=== PATIENT | male | born 1960 | race Caucasian/White ===

== ENCOUNTER 2021-11-20 00:38 | Emergency (ER) | payer OTHER ==
[2021-11-20 00:53] VITALS: BMI 34.9
[2021-11-20] MEDS ORDERED: LACTATED RINGERS SOLUTION 1000 ML INFUS.BAG IV ONE (01:05)
[2021-11-20] MEDS ORDERED: ONDANSETRON 4 MG/2 ML VIAL IVPUSH ONE (01:05)
[2021-11-20] MEDS ORDERED: morphine SULFATE 4 MG/ML VIAL IVPUSH ONE (01:19)
[2021-11-20] MEDS ORDERED: morphine SULFATE 4 MG/ML VIAL ONE (01:20)
[2021-11-20] MEDS ORDERED: ONDANSETRON 4 MG/2 ML VIAL ONE (01:21)
[2021-11-20 01:41] LABS: HEMATOCRIT 42.9 % (35.4-49); HEMOGLOBIN 14.3 GM/dL (11.7-16.9); RBC 4.69 M/mm3 (4.00-5.60); WHITE BLOOD COUNT 11.2 K/mm3 (4.0-10.0)
[2021-11-20 01:42] LABS: BASO % 0.9 % (0-2.0); LYMPH % 8.5 % (8-40); MCH 30.6 pg (25.7-33.7); MCHC 33.4 g/dl (32.0-35.9); MEAN CELL VOLUME 91.5 fl (80-96); MEAN PLT VOLUME 10.9 fl (7.5-11.1); MONO % 8.4 % (3.8-10.2); NEUT % 82.2 % (42.8-82.8); PLATELET COUNT 435 10^3/uL (134-434); RDW 14.3 % (11.9-15.9)
[2021-11-20 01:43] LABS: VENOUS BASE EXCESS -5.4 mmol/L (-2-2); VENOUS O2 SATURATION 68.4 % (70-80); VENOUS PCO2 34.9 mmHg (38-52); VENOUS PH 7.357 (7.310-7.410)
[2021-11-20 01:55] LABS: INR 1.99 (0.83-1.09); PROTHROMBIN TIME (PATIENT) 23.1 SEC (9.7-13.0)
[2021-11-20 01:58] LABS: ACTIVATED PTT 39.2 SECONDS (25.2-36.5)
[2021-11-20 02:00] LABS: CHLORIDE 95 mmol/L (98-107); SODIUM 133 mmol/L (136-145)
[2021-11-20 02:02] LABS: ANION GAP 18 MMOL/L (8-16); BLOOD UREA NITROGEN 12.2 mg/dL (7-18); CALCIUM 9.5 mg/dL (8.5-10.1); CO2 21 mmol/L (21-32); GLUCOSE,RANDOM 356 mg/dL (74-106)
[2021-11-20 02:03] LABS: ALBUMIN 2.6 g/dl (3.4-5.0)
[2021-11-20 02:05] LABS: BILIRUBIN,DIRECT 15.5 mg/dL (0.0-0.2); SGPT/ALT 239 U/L (13-61)
[2021-11-20 02:06] LABS: SGOT/AST 225 U/L (15-37)
[2021-11-20 02:07] LABS: TOT PROT 6.2 g/dl (6.4-8.2)
[2021-11-20 02:23] LABS: LIPASE 130 U/L (73-393)
[2021-11-20 02:30] LABS: ALK PHOS 1675 U/L (45-117); BILIRUBIN,TOTAL 18.8 mg/dL (0.2-1)
[2021-11-20 03:04] LABS: CALCIUM 9.4 mg/dL (8.5-10.1)
[2021-11-20 03:05] LABS: BLOOD UREA NITROGEN 12.6 mg/dL (7-18)
[2021-11-20 03:09] LABS: CREATININE 1.1 mg/dL (0.55-1.3)
[2021-11-20] MEDS ORDERED: METOCLOPRAMIDE HCL INJECTION 10 MG/2 ML VIAL ONE (04:38)
[2021-11-20] MEDS ORDERED: METOCLOPRAMIDE HCL INJECTION 10 MG/2 ML VIAL IVPUSH ONE (04:38)
[2021-11-20 06:03] VITALS: BP 150/69; PULSE 111; TEMP 99.6
== END 2021-11-20 06:39 | disposition short-term general hospital (02) ==
LOC: JER 00:38
PROC: 3E033GC Introduction of Other Therapeutic Substance into Peripheral Vein, Percutaneous Approach (ICD-10-PCS; principal; 2021-11-20)
PROC: 3E033NZ Introduction of Analgesics, Hypnotics, Sedatives into Peripheral Vein, Percutaneous Approach (ICD-10-PCS; 2021-11-20)
PROC: 3E033GC Introduction of Other Therapeutic Substance into Peripheral Vein, Percutaneous Approach (ICD-10-PCS; 2021-11-20)
DX: E80.6 Other disorders of bilirubin metabolism (principal); K80.63 Calculus of gallbladder and bile duct with acute cholecystitis with obstruction
CPT/HCPCS: 36415; 74177-TC; 76705-TC; 80048; 80053; 80307; 82010; 82248; 82803; 82962; 83690; 85025; 85610; 85730; 86803; 86850; 86900; 86901; 93005; 93010; 99285-25; C9803-CS; U0003; U0005

== ENCOUNTER 2022-03-10 12:44 | Inpatient (IN) | payer OTHER ==
[2022-03-10] MEDS ORDERED: ACETAMINOPHEN 1000 MG/100 ML BAG IVPB ONE (12:55)
[2022-03-10] MEDS ORDERED: SODIUM CHLORIDE 0.9% 500 ML INFUS.BAG IV ONE (12:55)
[2022-03-10] MEDS ORDERED: ACETAMINOPHEN INJECTION 100 ML IVPB ONE (13:00)
[2022-03-10] MEDS ORDERED: RAPID SEQUENCE INTUBATION KIT NR ONE (13:06)
[2022-03-10] MEDS ORDERED: NOREPINEPHRINE BITARTRATE 4 MG/4 ML ML IV ONE ×2 (13:12→13:15)
[2022-03-10] MEDS ORDERED: NOREPINEPHRINE NS PREMIX 16,000 MCG/500 ML BAG IVPB SCH (13:45)
[2022-03-10] MEDS: MIDAZOLAM IN 0.9 % SOD.CHLORID 100 MG/100 ML PLAST..BAG IVPB SCH (14:00)
[2022-03-10] MEDS ORDERED: MIDAZOLAM IN 0.9 % SOD.CHLORID 1 MG/1 ML PLAST..BAG ONE (14:07)
[2022-03-10] MEDS ORDERED: ACETAMINOPHEN 1000 MG/100 ML BAG IVPB PRN (14:54)
[2022-03-10 14:59] LABS: HEMATOCRIT 27.9 % (35.4-49); HEMOGLOBIN 9.3 GM/dL (11.7-16.9); MCH 28.3 pg (25.7-33.7); MCHC 33.3 g/dl (32.0-35.9); MEAN PLT VOLUME 8.9 fl (7.5-11.1); PLATELET COUNT 329 10^3/uL (134-434); RBC 3.28 M/mm3 (4.00-5.60); RDW 15.5 % (11.9-15.9); WHITE BLOOD COUNT 24.9 K/mm3 (4.0-10.0)
[2022-03-10 15:03] LABS: INR 1.32 (0.83-1.09); PROTHROMBIN TIME (PATIENT) 15.2 SEC (9.7-13.0)
[2022-03-10 15:05] LABS: ACTIVATED PTT 28.5 SECONDS (25.2-36.5)
[2022-03-10] MEDS ORDERED: PIPERACILLIN/TAZOB 4.5 GM 4.5 GM in DEXTROSE 5%-WATER 100 ML IVPB ONE (15:05)
[2022-03-10] MEDS ORDERED: VANCOMYCIN 1 GM in D5W (PRE-DOCKED) 1,000 MG/250 ML IVPB ONE (15:05)
[2022-03-10] MEDS ORDERED: PANTOPRAZOLE SODIUM 40 MG/100 ML BAG IVPB ONE (15:26)
[2022-03-10] MEDS ORDERED: VANCOMYCIN/WATER FOR INJ (PEG) 1,000 MG/200 ML BAG IVPB ONE (15:26)
[2022-03-10] MEDS ORDERED: PIPERACILLIN/TAZOB 4.5 GM 4.5 GM/100 ML BAG IVPB ONE (15:26)
[2022-03-10 15:27] LABS: CHLORIDE 105 mmol/L (98-107); LACTIC ACID 3.2 mmol/L (0.4-2.0); SODIUM 138 mmol/L (136-145)
[2022-03-10 15:29] LABS: ALBUMIN 1.1 g/dl (3.4-5.0); ANION GAP 11 MMOL/L (8-16); BLOOD UREA NITROGEN 47.4 mg/dL (7-18); CALCIUM 7.9 mg/dL (8.5-10.1); CO2 22 mmol/L (21-32); GLUCOSE,RANDOM 94 mg/dL (74-106)
[2022-03-10] MEDS: PANTOPRAZOLE SODIUM 40 MG VIAL IVPUSH SCH (15:31)
[2022-03-10 15:33] LABS: BILIRUBIN,TOTAL 1.4 mg/dL (0.2-1); CREATININE 1.6 mg/dL (0.55-1.3); SGOT/AST 737 U/L (15-37); SGPT/ALT 312 U/L (13-61); TOT PROT 4.4 g/dl (6.4-8.2)
[2022-03-10 15:37] LABS: ANISOCYTOSIS 0; MACROCYTOSIS 0
[2022-03-10] MEDS: INSULIN SLIDING SCALE (NOVOLOG) 1 VIAL SQ SCH (15:37)
[2022-03-10 15:41] LABS: ALK PHOS > 1000 U/L (45-117)
[2022-03-10 18:04] LABS: EPI CELLS 10 /uL (0-25.1); HYALINE CASTS 13 /uL (0-3.1); PH,URINE 5.5 (5.0-8.0); URINE APPEARANCE CLOUDY; URINE BACTERIA 1 /uL (0-1359); URINE BILIRUBIN 1+ (NEGATIVE); URINE COLOR DK YELLOW; URINE GLUCOSE (UA) 2+ (NEGATIVE); URINE KETONE NEGATIVE (NEGATIVE); URINE LEUK ESTERASE 2+ (NEGATIVE); URINE NITRITE NEGATIVE (NEGATIVE); URINE PROTEIN TRACE (NEGATIVE); URINE WBC 348 /uL (0-25.8)
[2022-03-10] MEDS: SODIUM CHLORIDE 1,000 ML IV SCH (19:00)
[2022-03-10] MEDS ORDERED: SODIUM CHLORIDE 1,000 ML IV STA (20:02)
[2022-03-10] MEDS: NOREPINEPHRINE D5W PREMIX 16,000 MCG/500 ML BAG IVPB SCH (20:09)
[2022-03-10] MEDS: CHLORHEXIDINE GLUCONATE 4% CLEANSER FOR DECOLONIZATION TP SCH (22:03)
[2022-03-11] MEDS: VASOPRESSIN 40 UNITS in SODIUM CHLORIDE 98 ML IVPB SCH ×2 (00:18→11:39)
[2022-03-11] MEDS: MUPIROCIN 2% TOPICAL OINTMENT FOR DECOLONIZATION NS SCH ×3 (00:22→21:22)
[2022-03-11 01:04] LABS: LACTIC ACID 2.2 mmol/L (0.4-2.0)
[2022-03-11] MEDS ORDERED: PIPERACILLIN/TAZOB 3.375 GM 3.375 GM in DEXTROSE 5%-WATER - 50 ML IVPB SCH (02:00)
[2022-03-11] MEDS: PIPERACILLIN/TAZOB 3.375 GM 3.375 GM in DEXTROSE 5%-WATER - 50 ML IVPB SCH ×3 (02:52→18:17)
[2022-03-11] MEDS: MIDAZOLAM IN 0.9 % SOD.CHLORID 100 MG/100 ML PLAST..BAG IVPB SCH ×2 (04:27→21:21)
[2022-03-11] MEDS: INSULIN SLIDING SCALE (NOVOLOG) 1 VIAL SQ SCH ×3 (06:24→16:17)
[2022-03-11 08:11] LABS: LACTIC ACID 3.8 mmol/L (0.4-2.0)
[2022-03-11 08:15] LABS: HEMATOCRIT 29.2 % (35.4-49); HEMOGLOBIN 9.3 GM/dL (11.7-16.9); MCH 28.1 pg (25.7-33.7); MCHC 31.7 g/dl (32.0-35.9); MEAN CELL VOLUME 88.4 fl (80-96); MEAN PLT VOLUME 8.6 fl (7.5-11.1); RDW 15.7 % (11.9-15.9)
[2022-03-11] MEDS ORDERED: LACTATED RINGERS SOLUTION 1000 ML INFUS.BAG IV ONE (08:19)
[2022-03-11 08:21] LABS: WHITE BLOOD COUNT 18.3 K/mm3 (4.0-10.0)
[2022-03-11 08:23] LABS: PLATELET COUNT 227 10^3/uL (134-434)
[2022-03-11 08:59] LABS: CHLORIDE 111 mmol/L (98-107); SODIUM 143 mmol/L (136-145)
[2022-03-11 09:02] LABS: ANION GAP 12 MMOL/L (8-16); BLOOD UREA NITROGEN 35.5 mg/dL (7-18); CALCIUM 7.4 mg/dL (8.5-10.1); CO2 20 mmol/L (21-32); GLUCOSE,RANDOM 169 mg/dL (74-106); MAGNESIUM 1.9 mg/dL (1.8-2.4)
[2022-03-11 09:04] LABS: SGOT/AST 313 U/L (15-37); SGPT/ALT 213 U/L (13-61)
[2022-03-11 09:06] LABS: BILIRUBIN,TOTAL 1.4 mg/dL (0.2-1); PHOSPHOROUS 4.7 mg/dL (2.5-4.9); TOT PROT 3.8 g/dl (6.4-8.2)
[2022-03-11 09:08] LABS: ALBUMIN 0.9 g/dl (3.4-5.0); ALK PHOS 674 U/L (45-117)
[2022-03-11] MEDS: PANTOPRAZOLE SODIUM 40 MG VIAL IVPUSH SCH (09:10)
[2022-03-11] MEDS: ENOXAPARIN NA (PORCINE) 40 MG/0.4 ML DISP.SYRIN SQ SCH (09:10)
[2022-03-11] MEDS: NOREPINEPHRINE D5W PREMIX 16,000 MCG/500 ML BAG IVPB SCH ×2 (09:11→20:45)
[2022-03-11 10:10] LABS: ANISOCYTOSIS 0; HELMET CELLS 0; HOWELL-JOLLY BODIES 0; MACROCYTOSIS 0; OVALOCYTE 0; ROULEAU 0; SICKELED CELLS 0; TARGET CELLS 0; TEAR DROP CELLS 0; TOXIC GRANULATION 0
[2022-03-11 18:16] LABS: LIPASE < 10 U/L (73-393)
[2022-03-11 18:17] LABS: AMYLASE 26 U/L (25-115)
[2022-03-11] MEDS: SODIUM CHLORIDE 1,000 ML IV SCH (19:35)
[2022-03-11] MEDS ORDERED: SODIUM CHLORIDE 1,000 ML IV STA (21:11)
[2022-03-11] MEDS: CHLORHEXIDINE GLUCONATE 4% CLEANSER FOR DECOLONIZATION TP SCH (21:22)
[2022-03-11 21:57] LABS: LACTIC ACID 5.6 mmol/L (0.4-2.0)
[2022-03-11] MEDS ORDERED: VASOPRESSIN 20 UNITS/ML VIAL IV ONE (22:47)
[2022-03-11] MEDS ORDERED: PHENYLEPHRINE HCL 10 MG/1 ML SINGLE DOSE VIAL ONE (22:47)
[2022-03-11] MEDS: PHENYLEPHRINE NS PREMIX 50,000 MCG/500 ML BAG CVP SCH (22:59)
[2022-03-12] MEDS: VASOPRESSIN 40 UNITS in SODIUM CHLORIDE 98 ML IVPB SCH ×2 (00:05→12:23)
[2022-03-12] MEDS ORDERED: MINERAL OIL/PETROLATUM,WHITE 3.5 GM TUBE OU PRN (01:16)
[2022-03-12] MEDS ORDERED: VECURONIUM BROMIDE 100 MG/100 ML BAG IVPB SCH (01:30)
[2022-03-12] MEDS ORDERED: LACTATED RINGERS SOLUTION 1,000 ML/1,000 ML INFUS.BAG IV SCH (01:30)
[2022-03-12] MEDS: ALBUMIN HUMAN 25% 12.5 GM/50 ML VIAL IV SCH ×3 (01:41→02:57)
[2022-03-12 02:00] LABS: ARTERIAL BLD GAS O2 SATURATION 35.1 % (95-98)
[2022-03-12 02:02] LABS: ALLENS TEST POSITIVE; VENT MODE A/C; VENT RATE 14
[2022-03-12 02:03] LABS: ARTERIAL BLOOD GAS pH 6.942 (7.350-7.450)
[2022-03-12] MEDS ORDERED: FLUDROCORTISONE ACETATE 0.1 MG TABLET (FP) NGT SCH (03:38)
[2022-03-12] MEDS: HYDROCORTISONE SOD SUCCINATE 100 MG/2 ML VIAL IVPB SCH ×2 (03:55→10:27)
[2022-03-12 05:34] LABS: ARTERIAL BLOOD GAS BASE EXCESS -21.4 mmol/L (-2-2)
[2022-03-12 05:35] LABS: ALLENS TEST POSITIVE
[2022-03-12 05:36] LABS: VENT MODE A/C; VENT RATE 14
[2022-03-12 05:38] LABS: ARTERIAL BLOOD GAS pH 6.863 (7.350-7.450)
[2022-03-12 05:39] LABS: ARTERIAL BLOOD GAS PO2 29.1 mmHg (80-100)
[2022-03-12 06:59] LABS: HEMATOCRIT 22.6 % (35.4-49); MCH 27.7 pg (25.7-33.7); MCHC 30.3 g/dl (32.0-35.9); MEAN CELL VOLUME 91.6 fl (80-96); PLATELET COUNT 104 10^3/uL (134-434); RBC 2.46 M/mm3 (4.00-5.60); RDW 16.3 % (11.9-15.9); WHITE BLOOD COUNT 15.7 K/mm3 (4.0-10.0)
[2022-03-12] MEDS: NOREPINEPHRINE D5W PREMIX 16,000 MCG/500 ML BAG IVPB SCH (07:00)
[2022-03-12 07:11] LABS: CHLORIDE 110 mmol/L (98-107); SODIUM 140 mmol/L (136-145)
[2022-03-12 07:15] LABS: ANION GAP 15 MMOL/L (8-16); BLOOD UREA NITROGEN 39.5 mg/dL (7-18); CO2 15 mmol/L (21-32); GLUCOSE,RANDOM 158 mg/dL (74-106); MAGNESIUM 1.7 mg/dL (1.8-2.4)
[2022-03-12 07:17] LABS: CREATININE 1.7 mg/dL (0.55-1.3); PHOSPHOROUS 6.3 mg/dL (2.5-4.9); SGOT/AST 613 U/L (15-37); SGPT/ALT 218 U/L (13-61)
[2022-03-12 07:18] LABS: BILIRUBIN,TOTAL 1.4 mg/dL (0.2-1); TOT PROT 3.6 g/dl (6.4-8.2)
[2022-03-12 07:26] LABS: ALBUMIN 1.2 g/dl (3.4-5.0); ALK PHOS 407 U/L (45-117); CALCIUM 6.9 mg/dL (8.5-10.1)
[2022-03-12 08:17] LABS: HEMOGLOBIN 6.9 GM/dL (11.7-16.9)
[2022-03-12 08:23] LABS: INR 1.63 (0.83-1.09); PROTHROMBIN TIME (PATIENT) 18.8 SEC (9.7-13.0)
[2022-03-12 09:15] LABS: ARTERIAL BLD GAS O2 SATURATION 34.7 % (95-98); ARTERIAL BLOOD GAS BASE EXCESS -22.9 mmol/L (-2-2)
[2022-03-12 09:21] LABS: ALLENS TEST POSITIVE
[2022-03-12 09:22] LABS: VENT RATE 14
[2022-03-12 09:23] LABS: VENT MODE A/C
[2022-03-12 09:25] LABS: ARTERIAL BLOOD GAS pH 6.836 (7.350-7.450)
[2022-03-12 09:26] LABS: ARTERIAL BLOOD GAS PO2 36.4 mmHg (80-100)
[2022-03-12 09:40] LABS: HEMATOCRIT 22.5 % (35.4-49); MCH 27.9 pg (25.7-33.7); MCHC 30.3 g/dl (32.0-35.9); MEAN CELL VOLUME 92.1 fl (80-96); MEAN PLT VOLUME 10.3 fl (7.5-11.1); PLATELET COUNT 110 10^3/uL (134-434); RBC 2.44 M/mm3 (4.00-5.60); RDW 16.2 % (11.9-15.9)
[2022-03-12 09:43] LABS: ANISOCYTOSIS 1+; MACROCYTOSIS 0; PLATELET ESTIMATE DECREASED
[2022-03-12 09:44] LABS: HEMOGLOBIN 6.8 GM/dL (11.7-16.9); WHITE BLOOD COUNT 19.6 K/mm3 (4.0-10.0)
[2022-03-12] MEDS: PHENYLEPHRINE NS PREMIX 50,000 MCG/500 ML BAG CVP SCH (09:50)
[2022-03-12] MEDS ORDERED: PIPERACILLIN/TAZOB 3.375 GM 3.375 GM in DEXTROSE 5%-WATER - 50 ML IVPB SCH (10:00)
[2022-03-12] MEDS ORDERED: VANCOMYCIN/WATER 1250 MG 1,250 MG/250 ML BAG IVPB ONE (10:00)
[2022-03-12 10:23] VITALS: RESP 17
[2022-03-12] MEDS: PANTOPRAZOLE SODIUM 40 MG VIAL IVPUSH SCH (10:26)
[2022-03-12] MEDS: ENOXAPARIN NA (PORCINE) 40 MG/0.4 ML DISP.SYRIN SQ SCH (10:27)
[2022-03-12] MEDS: MUPIROCIN 2% TOPICAL OINTMENT FOR DECOLONIZATION NS SCH (10:36)
[2022-03-12 11:15] LABS: ANISOCYTOSIS 1+; MACROCYTOSIS 1+; PLATELET ESTIMATE DECREASED
[2022-03-12] MEDS: INSULIN SLIDING SCALE (NOVOLOG) 1 VIAL SQ SCH (12:23)
[2022-03-12] MEDS ORDERED: morphine SULFATE 4 MG/ML VIAL IVPUSH ONE (13:00)
[2022-03-12] MEDS ORDERED: MORPHINE SULFATE/0.9% NACL/PF 100 MG/100 ML BAG IVPB SCH (13:00)
[2022-03-12 14:19] VITALS: BMI 25.7
[2022-03-12 18:49] VITALS: BP 74/42; PULSE 63; TEMP 97.2
== END 2022-03-12 14:22 | disposition expired | DRG 871 ==
LOC: JER 12:44 → JERBED 13:33 → JICU 15:56
PROVIDERS: ADMIT Internal Medicine Pulmonary Disease; ATTEND Internal Medicine Pulmonary Disease
PROC: 0BH17EZ Insertion of Endotracheal Airway into Trachea, Via Natural or Artificial Opening (ICD-10-PCS; principal; 2022-03-10)
PROC: 5A1945Z Respiratory Ventilation, 24-96 Consecutive Hours (ICD-10-PCS; 2022-03-10)
PROC: 05HM33Z Insertion of Infusion Device into Right Internal Jugular Vein, Percutaneous Approach (ICD-10-PCS; 2022-03-10)
PROC: B543ZZA Ultrasonography of Right Jugular Veins, Guidance (ICD-10-PCS; 2022-03-10)
DX: A41.89 Other specified sepsis (principal); J18.9 Pneumonia, unspecified organism; J96.01 Acute respiratory failure with hypoxia; R65.21 Severe sepsis with septic shock; N17.9 Acute kidney failure, unspecified; E87.1 Hypo-osmolality and hyponatremia; E87.2 Acidosis; C25.7 Malignant neoplasm of other parts of pancreas; C78.7 Secondary malignant neoplasm of liver and intrahepatic bile duct; N40.0 Benign prostatic hyperplasia without lower urinary tract symptoms; D64.9 Anemia, unspecified; E11.9 Type 2 diabetes mellitus without complications; I10 Essential (primary) hypertension; E78.5 Hyperlipidemia, unspecified; Z86.73 Personal history of transient ischemic attack (TIA), and cerebral infarction without residual deficits; Z98.890 Other specified postprocedural states
CPT/HCPCS: 0241U-QW; 36415; 36600; 71045-TC-FY; 76705-TC; 80053; 81003; 82150; 82550; 82553; 82728; 82803; 82962; 83540; 83550; 83605; 83690; 83735; 84100; 84484; 85025; 85045; 85610; 85730; 86301; 86850; 86900; 86901; 86922; 87040; 87070; 87077; 87086; 87186; 87205; 87899; 93005; 93010; 93306-TC; 94002; 99291; 99292; P9047